=== PATIENT | female | born 1965 | race Caucasian/White ===

== ENCOUNTER → 2016-10-03 | Outpatient (CLI) | payer OTHER ==
--- NOTE | 2016-10-03 16:28 | DI ---
XR C-SPINE 2-3 VW,10/03/2016 3:18 PM: Clinical History: Status post surgery. Previous Exam: 08/15/2016 Findings: AP, lateral and odontoid views of the cervical spine are obtained, and demonstrate post surgical finney ges consistent with anterior and interbody fusion of the C5/6 level. There is also posterior fusion a nd interbody fusion of the C6/7 level. There has been no significant bony fusion of the new interbody fusion at the C5/6 level. The lung apices are clear. Impression: New anterior and interbody fusion at C5/6 without any significant new bone formation as of this time.
== END ==
LOC: RAD 14:57
PROVIDERS: ATTEND Neurological Surgery
DX: Z47.89 Encounter for other orthopedic aftercare (principal); Z98.1 Arthrodesis status
CPT/HCPCS: 72040

== ENCOUNTER → 2016-11-30 | Outpatient (CLI) | payer OTHER ==
--- NOTE | 2016-11-30 15:36 | DI ---
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 Status post fusion. Previous Exam: 10/03/2016. A routine upright 3 view study is submitted. The patient is status post recent anterior fusion at C5- 6. There is an older fusion at C6-7 that is solid in the previous anterior buttress plate at C6-7 has been removed. Posterior fusion has been accomplished at C6-7 with metallic struts transfixed with sc rews inserted into the lamina bilaterally. The remaining disc spaces are of normal height. Posterior alignment and lateral masses are otherwise normal. C1 articulates normally with C2 and the occiput. P revertebral soft tissue planes are normal. Readin. Status post anterior fusion at C5-6. The fusion at this time is not solid. 2. Status post previous anterior fusion at C6-7 and that fusion is solid. There is a posterior fusio n at C6-7 that is accomplished with metallic struts transfixed with screws inserted into the lamina b ilaterally at C6 and C7.
== END ==
LOC: RAD 10:50
PROVIDERS: ATTEND Neurological Surgery
DX: Z48.811 Encounter for surgical aftercare following surgery on the nervous system (principal); M47.12 Other spondylosis with myelopathy, cervical region; Z98.1 Arthrodesis status
CPT/HCPCS: 72040

== ENCOUNTER → 2017-02-08 | Outpatient (CLI) | payer OTHER ==
--- NOTE | 2017-02-08 12:40 | DI ---
XR C-SPINE 2-3 VW,02/08/2017 10:53 AM: Clinical History: Postsurgical changes. Previous Exam: 11/30/16 Findings: AP and lateral views of the cervical spine are obtained, and demonstrate postsurgical changes unchang ed from the prior exam. There is good bony fusion of C6/7. The prevertebral soft tissues are unremark able. Impression: No significant change from prior.
== END ==
LOC: RAD 10:30 → LAB 10:30
PROVIDERS: ATTEND Neurological Surgery
DX: Z48.811 Encounter for surgical aftercare following surgery on the nervous system (principal); Z98.1 Arthrodesis status
CPT/HCPCS: 72040

== ENCOUNTER → 2017-04-12 | Outpatient (CLI) | payer OTHER ==
--- NOTE | 2017-04-12 14:36 | DI ---
History: Neck pain Comparison: 10/11/2016. Findings: Anterior plate and screws extending from C5-C6. There is an intervertebral block. Posterior fixation extends from C6-C7. Hardware is well seated Cervical alignment is normal. No prevertebral soft tissue swelling. No compression fracture. Intervertebral disc spaces from C2-C5 are maintained Lateral masses are not visualized adequately for evaluation Impression: Postoperative changes. No acute injury. No changes compared with February 08, 2017. Comparison:
== END ==
LOC: RAD 13:06
PROVIDERS: ATTEND Neurological Surgery
DX: Z48.811 Encounter for surgical aftercare following surgery on the nervous system (principal)
CPT/HCPCS: 72040